=== PATIENT | female | born 1955 | race African-American/Black ===

== ENCOUNTER 2017-09-29 09:21 | Outpatient (CLI) | payer BC, OTHER ==
--- NOTE | 2017-10-03 14:52 | MMO ---
BILATERAL SCREENING MAMMOGRAM: Date: 09/29/17 INDICATION: Annual exam. COMPARISON: Prior exam dated 11/20/13. FINDINGS: Interpretation of this exam was assisted with computer-aided detection. The breast parenchyma is extremely dense. There is a new focal asymmetry seen within the upper aspect of the right middle breast on the MLO pro jection only. No suspicious abnormality seen in the left breast. IMPRESSION: BIRADS 0: Incomplete: Need Additional Imaging Evaluation and/or Prior Mammograms for Comparison There is a new focal asymmetry seen within the upper aspect of the right breast on the MLO projection only within the mid depth. Recommend spot magnification compression views right MLO with an exaggera carlos right CC projection. The facility will notify the patient of the need for additional imaging services. POS: JEANINE
== END 2017-09-29 09:22 | disposition home or self-care (01) ==
LOC: SCSMAMMO 09:21
PROVIDERS: ATTEND Family Medicine
DX: Z12.31 Encounter for screening mammogram for malignant neoplasm of breast (principal)
CPT/HCPCS: 77067

== ENCOUNTER 2017-10-31 08:25 | Outpatient (CLI) | payer OTHER | END 2017-10-31 08:26 | disposition home or self-care (01) | LOC: BICMAMMO 08:25 | PROVIDERS: ATTEND Family Medicine | DX: R92.2 Inconclusive mammogram (principal) | CPT/HCPCS: G0279 ==

== ENCOUNTER 2018-11-24 09:49 | Outpatient (CLI) | payer OTHER ==
--- NOTE | 2018-11-24 11:08 | MMO ---
Bilateral MAMMO Bilat Screen [facility]. CLINICAL HISTORY: Patient is 63 years old and is seen for screening. The patient has no family history of breast cancer. The patient has no personal history of cancer. VIEWS: The views performed were: bilateral craniocaudal with tomosynthesis and bilateral mediolateral oblique with tomosynthesis. FILMS COMPARED: The present examination has been compared to prior imaging studies performed at [facility] on 09/20/2003, 10/10/2006, 01/17/2008, 11/20/2013 and 10/31/2017, and at [facility] on 09/29/2017. MAMMOGRAM FINDINGS: The breasts are heterogeneously dense, which could obscure a lesion on mammography. There are no suspicious masses, suspicious calcifications, or new areas of architectural distortion. IMPRESSION: THERE IS NO MAMMOGRAPHIC EVIDENCE OF MALIGNANCY. A ROUTINE FOLLOW-UP MAMMOGRAM IN 1 YEAR IS RECOMMENDED. THE RESULTS OF THIS EXAM WERE SENT TO THE PATIENT. ACR BI-RADS Category 1 - Negative MAMMOGRAPHY NOTE: 1. A negative mammogram report should not delay a biopsy if a dominant of clinically suspicious mass is present. 2. Approximately 10% to 15% of breast cancers are not detected by mammography. 3. Adenosis and dense breasts may obscure an underlying neoplasm.
== END 2018-11-24 09:50 | disposition home or self-care (01) ==
LOC: BICMAMMO 09:49
PROVIDERS: ATTEND Family Medicine
DX: Z12.31 Encounter for screening mammogram for malignant neoplasm of breast (principal)
CPT/HCPCS: 77063; 77067